=== PATIENT | female | born 1970 | race African-American/Black ===

== ENCOUNTER 2017-11-02 20:06 | Emergency (ER) | payer SELFPAY ==
[~2017-11-02] VITALS: Ht 162.6 cm; Wt 69.0 kg
[2017-11-02 20:13] VITALS: BP 157/97
== END 2017-11-02 21:13 | disposition left against medical advice (07) ==
LOC: ER 20:21
DX: Z53.21 Procedure and treatment not carried out due to patient leaving prior to being seen by health care provider (principal)

== ENCOUNTER 2017-11-03 20:26 | Emergency (ER) | payer SELFPAY | END 2017-11-04 | disposition left against medical advice (07) | LOC: ER 20:26 | DX: Z53.21 Procedure and treatment not carried out due to patient leaving prior to being seen by health care provider (principal) ==